=== PATIENT | female | born 1930 | race Caucasian/White ===

== ENCOUNTER 2016-05-24 14:14 | Outpatient (CLI) | payer MEDICARE, OTHER | END 2016-05-24 14:15 | disposition home or self-care (01) | DX: E03.9 Hypothyroidism, unspecified (principal) ==

== ENCOUNTER 2017-05-29 09:54 | Outpatient (CLI) | payer MEDICARE, OTHER ==
[2017-05-29] MEDS ORDERED: REGADENOSON 0.4 MG/5 ML SYRINGE IVP ONE ×2 (10:29→13:27)
--- NOTE | 2017-05-29 14:35 | Nuclear Medicine Report ---
EXAM: SINGLE-ISOTOPE PHARMACOLOGICAL STRESS TEST WITH REGADENOSON. SINGLE-ISOTOPE AND ONE-DAY REST/STRESS M YOCARDIAL PERFUSION SCANS WITH TOMOGRAPHIC IMAGING, QUANTITATIVE ANALYSIS, WALL MOTION ANALYSIS AND C ALCULATION OF EJECTION FRACTION. EXAM DATE: 05/29/2017 02:19 PM. CLINICAL HISTORY: SOB, CHEST PAIN. COMPARISON: None. TECHNIQUE: After the intravenous administration of 9.2 mCi of Tc-99m sestamibi, a rest myocardial perfusion scan was done with tomography. Motion correction was applied when appropriate. A pharmacological stress was performed with the infusion of 0.4 mg regadenoson per protocol. Accordin g to protocol, 38.6 mCi of Tc-99m sestamibi was injected for stress myocardial perfusion scan. Motion correction was applied when appropriate. Gated tomographic images were obtained for wall motion analysis and computation of left ventricular e jection fraction. FINDINGS: No convincing fixed or reversible perfusion defects are evident. Wall motion analysis demonstrates no focal wall motion abnormalities. The left ventricular end-diastolic volume is 55 cc. The left ventricular end-systolic volume is 10 cc . The left ventricular ejection fraction is calculated to be 81%. IMPRESSION: 1. No scintigraphic findings to indicate myocardial ischemia. Negative for infarct. 2. Left ventricular ejection fraction of >65%. 3. Normal segmental and global wall motion. 4. Normal left ventricular cavity size, no change with stress. [facility] Referring Provider Line: [phone] SITE ID: [id number]
[2017-05-30 11:25] VITALS: BP 146/80
--- NOTE | 2017-06-04 12:45 | CARDIAC PROCEDURE NOTE ---
DATE OF SERVICE: 05/29/2017 Physician: Pam Yeh MD LEXISCAN TEST: 05/29/2017 The patient underwent Lexiscan test. FINDINGS HEART RATE RESPONSE: Baseline 67, to maximum 99. Blood pressure response 146/80, which remained the maximum recorded. ST-SEGMENT RESPONSE: No significant ST-segment elevations or depressions noted. ARRHYTHMIAS: None noted. SYMPTOMS: The patient did experience some epigastric discomfort; a headache, right frontal; and some mild dyspnea. She had no chest pain. IMPRESSION: No symptoms of chest pain. No significant EKG changes. CONCLUSIONS: Await imaging studies. TD: 05/29/2017 13:59
== END 2017-05-29 09:55 | disposition home or self-care (01) ==
LOC: DI 09:54
PROVIDERS: ATTEND Internal Medicine Cardiovascular Disease
DX: R06.02 Shortness of breath (principal); R07.89 Other chest pain
CPT/HCPCS: 78452; 93017; A9500; J2785

== ENCOUNTER 2018-01-10 09:45 | Outpatient (CLI) | payer MEDICARE, OTHER ==
[2018-01-10 10:12] LABS: CALCIUM 9.2 mg/dL (8.5-10.3); CREATININE 0.7 mg/dL (0.4-1.0)
== END 2018-01-10 09:46 | disposition home or self-care (01) ==
LOC: LAB 09:45
PROVIDERS: ATTEND Internal Medicine Cardiovascular Disease
DX: I10 Essential (primary) hypertension (principal)
CPT/HCPCS: 36415; 80048

== ENCOUNTER 2018-04-29 11:07 | Outpatient (CLI) | payer MEDICARE, OTHER ==
[2018-04-29 11:39] LABS: BASOPHILS % (AUTO) 0.9 %; EOSINOPHILS # (AUTO) 0.1 10^3/uL (0.0-0.7); EOSINOPHILS % (AUTO) 1.2 %; HGB - HEMOGLOBIN 12.7 g/dL (12.0-16.0); LYMPHOCYTES # (AUTO) 0.9 10^3/uL (1.5-3.5); LYMPHOCYTES % (AUTO) 18.2 %; MEAN CORPUSCULAR HGB CONC 34.3 g/dL (32.0-36.0); MEAN CORPUSCULAR VOLUME 87.4 fL (81.0-99.0); MEAN PLATELET VOLUME 8.2 fL (7.9-10.8); MONOCYTES # (AUTO) 0.5 10^3/uL (0.0-1.0); MONOCYTES % (AUTO) 10.1 %; NEUTROPHILS # (AUTO) 3.5 10^3/uL (1.5-6.6); NEUTROPHILS % (AUTO) 69.6 %; PLT - PLATELET COUNT 184 10^3/uL (130-450); RED BLOOD COUNT 4.24 10^6/uL (4.20-5.40)
[2018-04-29 11:54] LABS: CALCIUM 9.2 mg/dL (8.5-10.3); CREATININE 0.6 mg/dL (0.4-1.0)
--- NOTE | 2018-04-29 13:00 | XRAY Report ---
Reason: [id number] Procedure Date: 04/29/2018 Accession Number: [id number] / [id number] Procedure: XR - Chest 2 View X-Ray CPT Code: 70919 FULL RESULT: EXAM: CHEST RADIOGRAPHY EXAM DATE: 04/29/2018 12:42 PM. CLINICAL HISTORY: Dyspnea. COMPARISON: 08/28/2014 12:06 PM. TECHNIQUE: 2 views. FINDINGS: Lungs/Pleura: No focal opacities evident. No pleural effusion. No pneumothorax. High normal lung volumes. Mediastinum: Heart and mediastinal contours are stable with aortic arch calcifications. Other: None. IMPRESSION: Stable exam with no acute superimposed airspace abnormality detected. [facility]
== END 2018-04-29 11:08 | disposition home or self-care (01) ==
LOC: LAB 11:07 → DI 11:08
PROVIDERS: ATTEND Internal Medicine
DX: R06.00 Dyspnea, unspecified (principal); Z86.711 Personal history of pulmonary embolism; Z79.899 Other long term (current) drug therapy
CPT/HCPCS: 36415; 71046; 80048; 83880; 85025; 85379